=== PATIENT | female | born 1940 | race Caucasian/White ===

== ENCOUNTER → 2017-06-22 | Outpatient (CLI) | payer MEDICARE ==
[~2017-06-22] MED LIST: ACET500T68 PO; ALB0.5 IH; ALBU2.5V36 INH; ALBU8.5H12 IH; AMOX-559 PO; AMOX1TAB3 FT; ASP81 PO; ASPI-715 PO; ATOR10TA2 PO; ATOR20TA22 PO; ATOR20TA65 PO; ATR10 PO; AZIL80TA PO; CALC-1060 PO; CALC600T72 PO; CEPH-13; DICL100G39 TOP; DOC100 PO; DOCU-416 PO; DOXY-179 PO; FER325 PO; HYDR-385 PO; IBAN150T6 PO; IBU200 PO; IBU600 PO; IBUP200C71 PO; IBUP50TA PO; KET10 PO; LEVO-85 PO; LEVO75TA68 PO; LEVO88TA42 PO; LOR5/325 PO; LOSA100T63 PO; MULT-1335 PO; OXYC-854 PO; OXYGENHOME INH; PER PO; PRAM0.5T27 PO; PRED20TA6 PO; ROSU20TA23 PO; SENN-187 PO; WAR75 PO; [UNRECOGNIZED DRUG - CODE] PO; [UNRECOGNIZED DRUG - CODE] PO
[2017-06-22 15:31] LABS: PLATELET COUNT, AUTOMATED 219 K/uL (150-450)
[2017-06-22 15:40] LABS: LDL CHOLESTEROL 60 mg/dl
== END ==
LOC: LAB 15:03
PROVIDERS: ATTEND Family Medicine
DX: I10 Essential (primary) hypertension (principal); E03.9 Hypothyroidism, unspecified; E78.5 Hyperlipidemia, unspecified
CPT/HCPCS: 36415; 82040; 82247; 82310; 82374; 82435; 82465; 82565; 82947; 83718; 84075; 84132; 84155; 84295; 84443; 84450; 84460; 84478; 84520; 85025

== ENCOUNTER → 2017-07-30 | Outpatient (CLI) | payer MEDICARE ==
[~2017-07-30] MED LIST changes: +ALBU8.5H IH; +BENZ200C15 PO; +IPRA3AMP21 IH
--- NOTE | 2017-07-30 12:43 | RADIOLOGY IMAGING REPORT ---
FACILITY: [facility] - [place] PATIENT NAME: Jennifer Kim : 1940 MR: [id number] V: [id number] EXAM DATE: ORDERING PHYSICIAN: GENNA SCHMIDT TECHNOLOGIST: Location: [facility] - [place] Patient: Jennifer Kim : 1940 Visit/Account:[id number] Date of Sevice: 07/30/2017 2 VIEWS CHEST INDICATION: Cough for one week. COMPARISON: 07/18/2014. FINDINGS: Cardiomediastinal silhouette and pulmonary vessels within normal limits for the technique and rotatio n.. There is no focal infiltrate or lobar consolidation. There is no pneumothorax or pleural effusion. No discrete nodule. Upper abdomen is unremarkable. No acute bony abnormality. Continued scoliotic cur vature the spine. No appreciable change given the difference in technique. IMPRESSION: 1. No acute cardiopulmonary process. Report Dictated By: Leandro Espitia at 07/30/2017 12:36 PM Report E-Signed By: Leandro Espitia at 07/30/2017 12:38 PM WSN:[id number]
== END ==
LOC: RAD 11:36
PROVIDERS: ATTEND Nurse Practitioner Primary Care
DX: R05 Cough (principal)
CPT/HCPCS: 71046

== ENCOUNTER → 2018-01-23 | Outpatient (CLI) | payer MEDICARE ==
[~2018-01-23] MED LIST changes: +IBUP-136 PO; -IBUP200C71 PO; +IPRA3AMP10 IH; -IPRA3AMP21 IH
== END ==
LOC: LAB 07:24
PROVIDERS: ATTEND Family Medicine
DX: Z13.1 Encounter for screening for diabetes mellitus (principal)
CPT/HCPCS: 36415; 82947

== ENCOUNTER → 2018-02-13 | Outpatient (CLI) | payer MEDICARE ==
[2018-02-13 16:41] LABS: PLATELET COUNT, AUTOMATED 211 K/uL (150-450)
== END ==
LOC: LAB 16:05
PROVIDERS: ATTEND Family Medicine
DX: E03.9 Hypothyroidism, unspecified (principal); G62.9 Polyneuropathy, unspecified
CPT/HCPCS: 36415; 82040; 82247; 82310; 82374; 82435; 82565; 82607; 82947; 84075; 84132; 84155; 84295; 84443; 84450; 84460; 84520; 85025

== ENCOUNTER 2018-02-22 02:46 | Day surgery (SDC) | payer MEDICARE ==
[~2018-02-22] VITALS: Ht 162.6 cm; Wt 70.3 kg
[2018-02-22 12:56] VITALS: BP 133/60
[2018-02-22] MEDS: OPHTHALMIC PROCEDURE 2 OS PRN ×2 (13:11→13:20)
[2018-02-22] MEDS ORDERED: NORMOSOL R SOLN(*) 1000 ML BAG 1,000 ML IV PRN (13:30)
[2018-02-22] MEDS ORDERED: OPHTHALMIC PROCEDURE 2 OS PRN (13:30)
[2018-02-22] MEDS ORDERED: OPHTHALMIC PROCEDURE 1 OS PRN (13:30)
[2018-02-22] MEDS ORDERED: LIDOCAINE/SOD BICARB 8.4% SYR ID ONE (13:30)
[2018-02-22] MEDS ORDERED: acetaZOLAMIDE 500 MG CAPCR PO ONE (15:00)
[2018-02-22 15:14] VITALS: BP 151/84
--- NOTE | 2018-02-22 18:05 | FOSTER LEFT EYE CATARACT ---
EVENT DATE: February 22, 2018 SURGEON: James Buckner MD ANESTHESIA: Topical PREOPERATIVE DIAGNOSIS Cataract, left eye. POSTOPERATIVE DIAGNOSIS Cataract, left eye. PROCEDURE Phacoemulsification of cataractous lens with implantation of an intraocular lens, left eye. DESCRIPTION OF PROCEDURE The risks, benefits, and alternatives were carefully discussed with the patient, and preoperative consent was obtained. The patient was brought to the operating room after receiving topical anesthetic. The patient was prepped and draped using sterile technique in the usual manner. A stab incision was made, and the chamber was inflated with preservative-free lidocaine. DuoVisc was injected to inflate the chamber. A 2.2 mm blade was used to enter the anterior chamber. Utrata forceps were used to tear a circular capsulorrhexis. BSS was used to hydrodissect the nucleus. Phaco tip was introduced, and the nucleus was chopped into four quadrants. Each quadrant was removed. The I/A tip was used to remove the cortex. The bag was inflated with ProVisc. The intraocular lens was injected into the capsular bag. The I/A tip was used to remove the ProVisc. The wound was found to be watertight. Vigamox, Nevanac, and Maxitrol ointment were placed in the patient's eye. The patient's eye was patched, and the patient was taken to the recovery room in stable condition. The patient was examined in the recovery room and found to be stable prior to release from the hospital. JOSE
[2018-03-04] MEDS ORDERED: HYDR-385 PO (10:14)
[2018-03-07] MEDS ORDERED: PRAM0.5T27 PO (16:21)
== END 2018-02-22 15:30 | disposition home or self-care (01) ==
LOC: OR 02:46
PROVIDERS: ATTEND Ophthalmology
DX: H25.12 Age-related nuclear cataract, left eye (principal)
CPT/HCPCS: 66984; A9270; V2632

== ENCOUNTER 2018-04-19 03:22 | Day surgery (SDC) | payer MEDICARE ==
[~2018-04-19] VITALS: Ht 162.6 cm; Wt 68.5 kg
[~2018-04-19 03:22] MED LIST changes: +FLUT16SP19 NS
[2018-04-19] MEDS ORDERED: acetaZOLAMIDE 500 MG CAPCR PO ONE (12:00)
[2018-04-19] MEDS ORDERED: LIDOCAINE/SOD BICARB 8.4% SYR ID ONE (12:00)
[2018-04-19] MEDS ORDERED: OPHTHALMIC PROCEDURE 2 OD PRN (12:00)
[2018-04-19] MEDS ORDERED: NORMOSOL R SOLN(*) 1000 ML BAG 1,000 ML IV PRN (12:00)
[2018-04-19] MEDS ORDERED: OPHTHALMIC PROCEDURE 1 OD PRN (12:00)
[2018-04-19 12:39] VITALS: BP 135/64
[2018-04-19] MEDS: OPHTHALMIC PROCEDURE 2 OD PRN ×2 (13:06→13:12)
[2018-04-19] MEDS ORDERED: MIDAZOLAM 2 MG/2 ML VIAL ONE (14:16)
[2018-04-19] MEDS ORDERED: PROPOFOL EMUL(*) 10MG/ML 20 ML 20 ML ONE (14:16)
[2018-04-19 14:33] VITALS: BP 136/69
--- NOTE | 2018-04-19 17:57 | FOSTER LEFT EYE CATARACT ---
EVENT DATE: April 19, 2018 SURGEON: James Buckner MD ANESTHESIOLOGIST: Luis Manuel Chung MD ANESTHESIA: MAC PREOPERATIVE DIAGNOSIS Cataract, right eye. POSTOPERATIVE DIAGNOSIS Cataract, right eye. PROCEDURE Phacoemulsification of cataractous lens with implantation of an intraocular lens, right eye. DESCRIPTION OF PROCEDURE The risks, benefits, and alternatives were carefully discussed with the patient, and preoperative consent was obtained. The patient was brought to the operating room after receiving topical anesthetic. The patient was prepped and draped using sterile technique in the usual manner. A stab incision was made, and the chamber was inflated with preservative-free lidocaine. DuoVisc was injected to inflate the chamber. A 2.2 mm blade was used to enter the anterior chamber. Utrata forceps were used to tear a circular capsulorrhexis. BSS was used to hydrodissect the nucleus. Phaco tip was introduced, and the nucleus was chopped into four quadrants. Each quadrant was removed. The I/A tip was used to remove the cortex. The bag was inflated with ProVisc. The intraocular lens was injected into the capsular bag. The I/A tip was used to remove the ProVisc. The wound was found to be watertight. Vigamox, Nevanac, and Maxitrol ointment were placed in the patient's eye. The patient's eye was patched, and the patient was taken to the recovery room in stable condition. The patient was examined in the recovery room and found to be stable prior to release from the hospital. JOSE
[2018-05-01] MEDS ORDERED: HYDR-385 PO (12:20)
== END 2018-04-19 14:50 | disposition home or self-care (01) ==
LOC: OR 03:22
PROVIDERS: ATTEND Ophthalmology
DX: H25.11 Age-related nuclear cataract, right eye (principal)
CPT/HCPCS: 66984; A9270; J2250; J2704; V2632

== ENCOUNTER → 2018-08-21 | Outpatient (CLI) | payer MEDICARE ==
[2018-08-21 12:25] LABS: PLATELET COUNT, AUTOMATED 232 K/uL (150-450)
--- NOTE | 2018-08-21 12:57 | EKG ---
FACILITY: [facility] PATIENT NAME: LEELA HALL : [id number] MR: [id number] V: [id number] EXAM DATE: ORDERING PHYSICIAN: CALEB DIAS TECHNOLOGIST: CLARA Test Reason : PRE OP Blood Pressure : / mmHG Vent. Rate : 061 BPM Atrial Rate : 061 BPM P-R Int : 138 ms QRS Dur : 072 ms QT Int : 428 ms P-R-T Axes : 062 075 065 degrees QTc Int : 430 ms Sinus rhythm Possible left atrial enlargement No acute appearing findings Confirmed by DAILY CAMACHO ([id number]) on 08/21/2018 9:39:29 PM Referred By: ARUN Confirmed By:DAILY CAMACHO
--- NOTE | 2018-08-21 13:32 | RADIOLOGY IMAGING REPORT ---
FACILITY: [facility] - [place] PATIENT NAME: Jennifer Kim : 1940 MR: [id number] V: [id number] EXAM DATE: ORDERING PHYSICIAN: CALEB DIAS TECHNOLOGIST: Location: [facility] - [place] Patient: Jennifer Kim : 1940 Visit/Account:[id number] Date of Sevice: 08/21/2018 CHEST PA LAT HISTORY: History of back pain now for surgery. COMPARISON: Chest x-ray July 30, 2017. FINDINGS: Cardiomediastinal contours: The heart size is normal. Lungs and pleura: There is no finding of a new infiltrate, lymphadenopathy or pleural effusion. Ther e may be mild hyperinflation of the lungs. Previously noted posterior scarring or prominence of the pulmonary markings is unchanged. Bones/soft tissues: There are no findings of a fracture. There is thoracic scoliosis with the convex ity pointing to the left. IMPRESSION: 1. Stable prominence of basilar markings seen best on the lateral projection. No findings of a new infiltrate. 2. Thoracic scoliosis. Report Dictated By: Arslan Campa MD at 08/21/2018 1:24 PM Report E-Signed By: Arslan Campa MD at 08/21/2018 1:25 PM WSN:[id number]
== END ==
LOC: RAD 11:56
PROVIDERS: ATTEND Orthopaedic Surgery
DX: Z01.812 Encounter for preprocedural laboratory examination (principal); Z01.818 Encounter for other preprocedural examination; Z01.810 Encounter for preprocedural cardiovascular examination; J44.9 Chronic obstructive pulmonary disease, unspecified; I10 Essential (primary) hypertension; Z87.891 Personal history of nicotine dependence; M48.061 Spinal stenosis, lumbar region without neurogenic claudication
CPT/HCPCS: 36415; 71046; 82040; 82247; 82310; 82374; 82435; 82565; 82947; 84075; 84132; 84155; 84295; 84443; 84450; 84460; 84520; 85025; 93005

== ENCOUNTER 2018-09-16 02:30 | Inpatient (IN) | payer MEDICARE ==
[2018-09-15 08:44] LABS: PLATELET COUNT, AUTOMATED 212 K/uL (150-450)
[2018-09-16] VITALS (12 sets, daily range): BP systolic 122–146; BP diastolic 50–107
[~2018-09-16] VITALS: Ht 162.6 cm; Wt 68.5 kg
[~2018-09-16 02:30] MED LIST changes: +PREGABALIN 75 MG CAPSULE PO ONE
[2018-09-16] MEDS ORDERED: NORMOSOL R SOLN(*) 1000 ML BAG 1,000 ML IV PRN (06:00)
[2018-09-16] MEDS ORDERED: LIDOCAINE/SOD BICARB 8.4% SYR ID ONE (06:00)
[2018-09-16] MEDS ORDERED: ceFAZolin(*) 2GM/D5W 50ML 50 ML IVPB ONE (06:00)
[2018-09-16] MEDS ORDERED: MIDAZOLAM 2 MG/2 ML VIAL IVP PRN (06:00)
[2018-09-16] MEDS ORDERED: FAMOTIDINE 20 MG TAB PO ONE (06:00)
[2018-09-16] MEDS ORDERED: ACETAMINOPHEN 500 MG TAB PO ONE (07:10)
[2018-09-16] MEDS ORDERED: fentaNYL CITR 100 MCG/2 ML AMP ONE ×3 (07:45→12:23)
[2018-09-16] MEDS ORDERED: ONDANSETRON 4 MG/2 ML VIAL ONE (07:46)
[2018-09-16] MEDS ORDERED: LIDOCAINE MPF 1% 5 ML VIAL ONE (07:46)
[2018-09-16] MEDS ORDERED: ROCURONIUM BROM 10 MG/ML 10 ML ONE (07:46)
[2018-09-16] MEDS ORDERED: KETAMINE HCL-NS 50 MG/5 ML SYR ONE (07:46)
[2018-09-16] MEDS ORDERED: DEXAMETHASONE SOD PHOS 10MG/ML ONE (07:46)
[2018-09-16] MEDS ORDERED: PROPOFOL EMUL(*) 10MG/ML 20 ML 20 ML ONE (07:46)
[2018-09-16] MEDS ORDERED: REMIFENTANIL HCL 1 MG VIAL ONE (07:54)
[2018-09-16] MEDS ORDERED: PREGABALIN 75 MG CAPSULE PO ONE (08:00)
[2018-09-16] MEDS ORDERED: SUGAMMADEX SOD 500 MG/5 ML SDV ONE (08:00)
[2018-09-16] MEDS ORDERED: ROPIVACAINE 0.2% 20 ML VIAL ONE (08:11)
[2018-09-16] MEDS ORDERED: THROMBIN (BOVINE) 20,000 UNIT VIAL ONE ×2 (08:12→09:50)
[2018-09-16] MEDS ORDERED: NS 0.9% IR ONE (08:20)
[2018-09-16] MEDS ORDERED: BACITRACIN IR ONE (08:20)
[2018-09-16] MEDS ORDERED: NS 0.9% IR PRN ×3 (09:15)
[2018-09-16] MEDS ORDERED: BACITRACIN IR PRN ×3 (09:15)
[2018-09-16] MEDS ORDERED: MIDAZOLAM 2 MG/2 ML VIAL ONE (09:30)
[2018-09-16] MEDS ORDERED: ONDANSETRON 4 MG/2 ML VIAL IVP PRN (12:50)
[2018-09-16] MEDS ORDERED: DIAZEPAM 5 MG TAB PO PRN (12:50)
[2018-09-16] MEDS ORDERED: HYDROmorphone HCL 2 MG/ML SDV IVP PRN (12:50)
[2018-09-16] MEDS ORDERED: FLUSH 10 ML SYR IVP PRN (12:50)
[2018-09-16] MEDS ORDERED: BISACODYL 10 MG SUPP PR PRN (12:50)
[2018-09-16] MEDS ORDERED: ACETAMINOPHEN(*)1000 MG/100 ML 100 ML IVPB PRN (12:50)
[2018-09-16] MEDS ORDERED: oxyCODONE HCL 5 MG CAP PO PRN (12:50)
[2018-09-16] MEDS ORDERED: BENZOCAINE/MENTHOL 1 EACH LOZG PO PRN (12:50)
[2018-09-16] MEDS ORDERED: ACETAMINOPHEN 500 MG TAB PO PRN (12:50)
[2018-09-16] MEDS ORDERED: LR(*) 1000 ML BAG 1,000 ML IV PRN (12:50)
[2018-09-16] MEDS ORDERED: diphenhydrAMINE 25 MG CAP PO PRN (12:50)
--- NOTE | 2018-09-16 12:51 | OPERATIVE REPORT 1 ---
EVENT DATE: September 16, 2018 SURGEON: Jun Hernandez MD ANESTHESIOLOGIST: Flavio Jansen MD ANESTHESIA: General endotracheal. HEALTH SPA MANAGER: JES Florian, CANOE INSPECTOR FINAL PREOPERATIVE DIAGNOSIS L3-L4 spinal stenosis with facet cyst and radiculopathy and neurogenic claudication. POSTOPERATIVE DIAGNOSIS L3-L4 spinal stenosis with facet cyst and radiculopathy and neurogenic claudication. PROCEDURE PERFORMED L3-L4 laminectomy and posterior lateral instrumented fusion with pedicle screw construct. IV FLUIDS 2100 cc. ESTIMATED BLOOD LOSS 120 cc. IMPLANTS USED 1. 6.5 mm x 45 mm pedicle screws from [employer] x3. 2. 6.5 mm x 40 mm pedicle screws from [employer] x1. 3. 5.5 mm x 45 mm connecting rods from [employer] x2. 3. Locking caps from [employer] x4. SPECIMENS None. DRAINS None. COMPLICATIONS None. DISPOSITION Post-Anesthesia Care Unit. INDICATIONS Ms. Kim is a 77-year old female who had left greater than right radiating leg pain, numbness and tingling. The majority of the pain was in the upper buttocks radiating down the anterior thighs, again on the left greater than the right. She had significant weakness in both legs with decreased walking tolerance secondary to having tiredness in her legs, preventing her from walking more than one than two blocks at a time. Her physical examination revealed negative straight leg raising tests bilaterally, 5/5 strength in all muscle groups and intact sensation in all dermatomes. Imaging studies showed a dextroconvexed degenerative scoliosis centered on L2 with a rightward lateral listhesis at L3-L4. There is a facet cyst coming from the left L3-L4 facet and severe spinal stenosis at that L3-L4 level without significant stenosis at other levels. Secondary to ongoing symptoms and failure of nonsurgical treatment including rest, activity modification, physical therapy, injections and medications, Ms. Kim was offered and elected to undergo L3-L4 laminectomy with L3-L4 posterior lateral instrumented fusion with a pedicle screw construct. Prior to surgery, I explained in detail to the patient the possible risks of surgery. These risks include bleeding, infection, damage to surrounding structures, nerve root injury, spinal fluid, leak, meningitis, persistent and/or worsening pain, need for further surgery, , blindness, sexual dysfunction, autonomic nervous system dysfunction and other unforeseen medical and surgical complications. An understanding that in general spinal surgery is more predictive at improving extremity discomfort than axial spine pain was stressed. DESCRIPTION OF PROCEDURE On the date of surgery, the patient was met in the preoperative hold area and all questions were answered. The operative site was identified and marked by myself. The patient was brought in good condition to the operating room and after succumbing to anesthesia was positioned in the prone position on a Anton table. All bony protuberances and soft tissues were well padded in the standard fashion. Care was taken to maintain appropriate perfusion pressures during anesthesia. Preoperative antibiotics were administered according to the appropriate timing schedule. At the conclusion of the procedure, sponge and needle counts were correct x2. A final time-out was undertaken by members of the operating team to confirm correct patient, correct levels and correct surgery. A vertical incision was then made overlying the intended surgical levels. Sharp dissection was carried out down to the posterior elements and soft tissues were elevated off the posterior elements in a subperiosteal manner. A lateral radiograph was obtained to confirm appropriate spinal level. Soft tissues were dissected off the posterior elements to prepare for pedicle screw insertion. We elevated soft tissues from the lamina, the pars intra-articularis and then out to the tips of the transverse processes of L3 and L4 bilaterally. We then packed thrombin soaked sponges into the lateral gutters for hemostasis and to maintain space for later placement of screws. The spinous process of L3 was removed using a combination of Leksell rongeurs and a [employer] bone cutter. The lamina was thinned down the midline with Leksell rongeurs and a high-speed bur. I was able to then use a Bunch curette to undermine the superior insertion of the ligamentum flavum from the inferior aspect of the L3 lamina. A Camp elevator was used to separate dural adhesions from surrounding bone and soft tissue prior to use of the Kerrison punch. A midline decompression was then performed with a combination of #3 and #4 Kerrison rongeurs. Once the midline decompression was complete superiorly, we encountered a significant amount of thickened ligamentum flavum as well as scar tissue in the facet joint cyst on the left side. We had to carefully tease the dura away from the ligamentum flavum and the facet cyst and ultimately were able to perform bilateral lateral recess decompressions, again using #3 and #4 Kerrisons. At the conclusion of the bilateral lateral recess decompressions, the Camp elevator was passed down the lateral recesses to ensure no ongoing compression of the dura or the neural elements. The Camp was similarly passed around the pedicles and out the foramina of the L3 and the L4 nerve root and excellent decompression had been achieved. Attention was then turned to the fusion portion of the procedure. The starting points for pedicle screws were identified bilaterally at L3 and L4. This was at approximately the intersection of the pars intra-articularis, the mid point of the transverse process and the lateral aspect of the adjacent facet joint. The 5 mm bur was used to decorticate the entry point and then a Lenke style probe was advanced against resistance through the pedicles and into the vertebral bodies. A ball tip feeler was used to palpate the pedicle superiorly, inferiorly, medially, laterally and distally to confirm absence of bony breaching. Pedicle screws were then placed bilaterally at L3 and L4 using 45 mm pedicle screws bilaterally for L3, a 45 mm pedicle screw on the right at L4 and a 40 mm pedicle screw on the left at L4. These screws were tested with neurophysiologic monitoring and all tested well within acceptable limits. 45 mm connecting rods were then selected and placed with the tulips of the pedicle screws bilaterally. Locking caps were placed and tightened and then finally tightened with the torque-limiting breakoff device. We then irrigated the wound with copious sterile saline solution and then used the 5 mm bur to decorticate the transverse processes of L3 and L4 bilaterally. Harvested and milled local bone was then packed into the lateral gutters overlying the transverse processes of L3 and L4. Hemostasis was obtained and the wound was then closed using running Stratafix suture for the deep fascia, inverted interrupted sutures for the subcutaneous tissue and then a running subcuticular skin stitch. Sponge and needle counts were correct x2. POSTOPERATIVE CARE PLAN The patient will remain in the hospital until she meets discharge criteria. She will be discharged home with instructions to follow up in two weeks for wound check and examination. JOSE
--- NOTE | 2018-09-16 13:47 | RADIOLOGY IMAGING REPORT ---
FACILITY: [facility] PATIENT NAME: Jennifer Kim : 1940 MR: [id number] V: [id number] EXAM DATE: ORDERING PHYSICIAN: CALEB DIAS TECHNOLOGIST: Location: [facility] Patient: Jennifer Kim : 1940 Visit/Account:[id number] Date of Sevice: 09/16/2018 L-SPINE >4 VIEWS Indication: L3-4 LAMI, L3-4 FUSION WITH INSTRUMENTATION Comparison: None. Findings: Intraoperative images of lumbar surgery available. Images demonstrate instrumentation at t he lower lumbar spine, at L3-4. IMPRESSION: Intraoperative images from lumbar surgery at L3-4. Report Dictated By: Gayr Hayes at 09/16/2018 1:34 PM Report E-Signed By: Gary Hayes at 09/16/2018 1:41 PM WSN:[email or web address]
--- NOTE | 2018-09-16 13:53 | Hospitalist Consultation ---
History of Present Illness Requesting Physician Dr. Hernandez Reason for Consult Medical Management Chief Complaint s/p lumbar fusion History of Present Illness She was admitted s/p lumbar fusion. It is reported the surgery went well and without complication. History Problems: (1) Hyperlipidemia Status: Chronic (2) Hypothyroidism Status: Chronic (3) RLS (restless legs syndrome) Status: Chronic (4) HTN (hypertension) Status: Chronic Home Meds Active Scripts Hydrocodone Bit/Acetaminophen (HYDROCODON-ACETAMINOPHEN 5-325) 1 Each Tablet, 1- 2 EACH PO QDAY for 30 Days, #60 TAB Prov:WINNIE LAIRD MD 08/21/18 Pramipexole Di-Hcl (MIRAPEX) 0.5 Mg Tablet, 1 TAB PO QDAY for 90 Days, #90 TAB 4 Refills Prov:WINNIE LAIRD MD 03/07/18 Losartan Potassium (COZAAR) 100 Mg Tablet, 1 TAB PO daily for 90 Days, #90 TAB 4 Refills Prov:WINNIE LAIRD MD 01/17/18 Atorvastatin Calcium (ATORVASTATIN CALCIUM) 20 Mg Tablet, 1 TAB PO QDAY for 90 Days, #90 TAB 4 Refills Prov:WINNIE LAIRD MD 12/13/17 Reported Medications Acetaminophen (TYLENOL EXTRA STRENGTH) 500 Mg Tablet, 2 TAB PO BID PRN for PAIN 06/22/17 Oxygen (OXYGEN) Inha, 2 L INH, L 01/13/17 Sennosides/Docusate Sodium (Stool Softener Tablet) 1 Each Tablet, 2 CAP PO HS 05/31/12 Calc/D3/Mag/Zn/Printer Slotter Feeder/Jose M/Dudley (CALCIUM 600 MG + VIT D TAB) 1 Each Tablet, 1 TAB PO BID 05/31/12 Aspirin (Aspirin) 81 Mg Tablet., 1 TAB PO DAILY 05/31/12 Levothyroxine Sodium (Levothyroxine Sodium) 88 Mcg Tablet, 1 TAB PO DAILY 05/31/12 Multivitamins W-Minerals (Multiple Vitamin) 1 Tab Tablet, 1 TAB PO DAILY 01/18/11 Allergies: Coded Allergies: YAMILEX Inhibitors (Verified Allergy, Mild, COUGH, 04/08/18) codeine (Verified Adverse Reaction, Severe, NAUSEA/VOMITING, 04/08/18) benazepril (Verified Adverse Reaction, Unknown, COUGH, 04/08/18) Patient History: Bundle branch block BROTHER OR SISTER FH: diabetes mellitus MOTHER, , Age:73 Hx Smoking: No (1 PPDX 40 YEARS ) Smoking Status: Former Smoker Exposure to Second Hand Smoke?: No Caffeine Intake: Coffee Caffeine/Cups Per Day: 1-2 CUPS/DAY Hx Alcohol Use: No Hx Substance Use Disorder: No Social Drug Use: Never Review of Systems All Systems Reviewed/Normal: Yes, Except as Noted Exam Vital Signs Vital Signs Date Time Temp Pulse Resp B/P (MAP) Pulse Ox O2 Delivery O2 Flow Rate FiO2 09/16/18 13:36 86 09/16/18 13:30 67 144/107 (119) Nasal Cannula 2.0 09/16/18 13:02 18 09/16/18 13:02 98.5 General Appearance: Alert, Awake, No Acute Distress, Afebrile Neuro: No Gross deficits Cardiovascular: Regular Rate and Rhythm Respiratory: No Respiratory Distress, Clear to Auscultation Psych: Alert & Oriented X3, Appropriate Mood & Affect Medical Decision Making Data Points Result Diagram: 09/15/1839 09/15/1839 Assessment and Plan Problems: (1) S/P lumbar fusion Status: Acute Assessment & Plan: Followed by Dr. Hernandez. (2) HTN (hypertension) Status: Chronic Assessment & Plan: She is on chronic treatment with Losartan. This has been restarted with hold parameters. (3) Hypothyroidism Status: Chronic Assessment & Plan: She is on chronic treatment with Levothyroxine. Continue. (4) Hyperlipidemia Status: Chronic Assessment & Plan: She is on chronic treatment with Atorvastatin. Continue. (5) RLS (restless legs syndrome) Status: Chronic Assessment & Plan: She is on chronic treatment with Mirapex. Continue. Venous Thromboembolism Antithrombotics Is Pt On Any Antithrombotics?: No Prophylaxis Tx Contraindicated Pharmacological Contraindicati: Surgical Contraindication Exam Sepsis Risk: No Definite Risk Problem Qualifiers (1) HTN (hypertension): Hypertension type: essential hypertension Qualified Codes: I10 - Essential (primary) hypertension KEIRA KIM LEARNING DISABILITIES TEACHER Sep 16, 2018 13:53
--- NOTE | 2018-09-16 14:19 | RADIOLOGY IMAGING REPORT ---
FACILITY: [facility] PATIENT NAME: Jennifer Kim : 1940 MR: [id number] V: [id number] EXAM DATE: ORDERING PHYSICIAN: CALEB DIAS TECHNOLOGIST: Location: [facility] - [place] Patient: Jennifer Kim : 1940 Visit/Account:[id number] Date of Sevice: 09/16/2018 C-ARM FLUORO 1 HR Indication: L3-L4 DISC HERNIATION/FUSION Comparison: None. Findings: Intraoperative images are obtained of the lower lumbar spine surgery with posterior mentati on and hardware identified. IMPRESSION: Lumbar spine surgery. Radiation dose: DAP 0.4798 mGycm2; AK 2.4386 mGy Report Dictated By: Gary Hayes at 09/16/2018 2:14 PM Report E-Signed By: Gary Hayes at 09/16/2018 2:15 PM WSN:[email or web address]
[2018-09-16] MEDS: APAP/HYDROCODONE 325/5 TAB PO PRN ×2 (15:26→19:37)
[2018-09-16] MEDS: ceFAZolin(*) 2GM/D5W 50ML 50 ML IVPB SCH (17:15)
[2018-09-16] MEDS: NS(*) 0.9% 250 ML BAG 250 ML IV SCH (17:15)
[2018-09-16] MEDS: PRAMIPEXOLE DIHYDROCHL 0.25 MG PO SCH (21:19)
[2018-09-16] MEDS: DOCUSATE SODIUM 100 MG CAP PO SCH (21:19)
[2018-09-17] VITALS (7 sets, daily range): BP systolic 120–147; BP diastolic 53–99
[2018-09-17] MEDS: NS(*) 0.9% 250 ML BAG 250 ML IV SCH (00:12)
[2018-09-17] MEDS: APAP/HYDROCODONE 325/5 TAB PO PRN ×5 (00:32→20:15)
[2018-09-17] MEDS: ceFAZolin(*) 2GM/D5W 50ML 50 ML IVPB SCH ×2 (00:32→09:04)
[2018-09-17] MEDS ORDERED: LEVOTHYROXINE SOD 0.088 MG TAB PO SCH (06:00)
[2018-09-17] MEDS: LEVOTHYROXINE SOD 0.088 MG TAB PO SCH (06:09)
[2018-09-17] MEDS ORDERED: HYDROmorphone* 1 MG/ML 1 MG/ML ML IVP PRN (07:40)
[2018-09-17] MEDS: LOSARTAN POTASSIUM 50 MG TAB PO SCH (09:00)
[2018-09-17] MEDS: MAGNESIUM HYDROXIDE* 30ML UDCP PO PRN ×2 (09:01→20:15)
[2018-09-17] MEDS: ATORVASTATIN 10 MG TAB PO SCH (09:03)
[2018-09-17] MEDS: DOCUSATE SODIUM 100 MG CAP PO SCH ×2 (09:03→20:15)
--- NOTE | 2018-09-17 09:21 | RADIOLOGY IMAGING REPORT ---
FACILITY: [facility] [place] PATIENT NAME: Jennifer Kim : 1940 MR: [id number] V: [id number] EXAM DATE: ORDERING PHYSICIAN: CALEB DIAS TECHNOLOGIST: Location: [facility] Patient: Jennifer Kim : 1940 Visit/Account:[id number] Date of Sevice: 09/17/2018 Technique: L-SPINE 2 OR 3 VIEW HISTORY: S/P L3-4 lami/fusion Comparison studies: Lumbar spine radiographs September 16, 2018 FINDINGS: Posterior spinal fusion hardware is noted at L3-L4. There is intervertebral disc space marilyn rowing at L5-S1 with corresponding endplate osteophytosis and sclerosis at this respective level. Th e vertebral body heights are preserved. There is a dextroscoliotic curvature of the lumbar spine. IMPRESSION: 1. Posterior spinal fusion hardware at L3-L4 without evidence of hardware complication. 2. Degenerative findings as above. Report Dictated By: Abhilash Meza DO at 09/17/2018 9:10 AM Report E-Signed By: Abhilash Meza DO at 09/17/2018 9:16 AM WSN:[id number]
--- NOTE | 2018-09-17 10:42 | Hospitalist Progress Note ---
Subjective Progress Notes Subjective She was admitted s/p lumbar fusion. She is doing well post-operatively. She had no acute events overnight. Patient Complains of: Cardiovascular: No: Chest Pain Respiratory: No: Shortness of Breath Physical Exam Vital Signs Date Time Temp Pulse Resp B/P (MAP) Pulse Ox O2 Delivery O2 Flow Rate FiO2 09/17/18 07:19 98.0 64 16 121/58 (79) 96 Nasal Cannula 09/17/18 04:32 3.0 Intake and Output 09/17/18 07:00 Intake Total 3000 ml Balance 3000 ml Intake Oral 1200 ml IV Total 1800 ml # Voids 4 General Appearance: Alert, Awake, No Acute Distress, Afebrile Neuro: No Gross deficits Cardiovascular: Regular Rate and Rhythm Respiratory: No Respiratory Distress, Clear to Auscultation GI: Soft and Non-Tender Psych: Alert & Oriented X3, Appropriate Mood & Affect Result Diagram: 09/15/18 0839 09/15/18 0839 Assessment and Plan Problems: (1) S/P lumbar fusion Status: Acute Assessment & Plan: Followed by Dr. Hernandez. (2) HTN (hypertension) Status: Chronic Assessment & Plan: She is on chronic treatment with Losartan. This was restarted with hold parameters. (3) Hypothyroidism Status: Chronic Assessment & Plan: She is on chronic treatment with Levothyroxine. Continue. (4) Hyperlipidemia Status: Chronic Assessment & Plan: She is on chronic treatment with Atorvastatin. Continue. (5) RLS (restless legs syndrome) Status: Chronic Assessment & Plan: She is on chronic treatment with Mirapex. Continue. Exam Sepsis Risk: No Definite Risk Problem Qualifiers (1) HTN (hypertension): Hypertension type: essential hypertension Qualified Codes: I10 - Essential (primary) hypertension KEIRA KIM CARE TEAM ASSISTANT Sep 17, 2018 10:42
[2018-09-17] MEDS: PRAMIPEXOLE DIHYDROCHL 0.25 MG PO SCH (20:14)
[2018-09-18 04:31] VITALS: BP 134/63
[2018-09-18] MEDS: LEVOTHYROXINE SOD 0.088 MG TAB PO SCH (04:37)
[2018-09-18] MEDS: APAP/HYDROCODONE 325/5 TAB PO PRN ×2 (04:38→09:12)
[2018-09-18] MEDS ORDERED: DOCU240C84 PO (06:52)
[2018-09-18] MEDS ORDERED: DIA5 PO (06:53)
[2018-09-18] MEDS ORDERED: LOR5/325 PO (06:53)
[2018-09-18 07:31] VITALS: BP 130/64
--- NOTE | 2018-09-18 08:35 | Hospitalist Progress Note ---
Subjective Progress Notes Subjective She was admitted after lumbar fusion. She is doing well post-operatively. She has no complaints. She would like to go home today. Patient Complains of: Cardiovascular: No: Chest Pain Respiratory: No: Shortness of Breath Physical Exam Vital Signs Date Time Temp Pulse Resp B/P (MAP) Pulse Ox O2 Delivery O2 Flow Rate FiO2 09/18/18 07:52 84 09/18/18 07:31 98.2 75 20 130/64 (86) Nasal Cannula 09/18/18 04:31 3.5 Intake and Output 09/18/18 07:00 Intake Total 1550 ml Balance 1550 ml Intake Oral 1550 ml # Voids 5 General Appearance: Alert, Awake, No Acute Distress, Afebrile Neuro: No Gross deficits Cardiovascular: Regular Rate and Rhythm Respiratory: No Respiratory Distress, Clear to Auscultation GI: Soft and Non-Tender Psych: Alert & Oriented X3, Appropriate Mood & Affect Result Diagram: 09/15/18 0839 09/15/18 0839 Assessment and Plan Problems: (1) S/P lumbar fusion Status: Acute Assessment & Plan: Followed by Dr. Hernandez. (2) HTN (hypertension) Status: Chronic Assessment & Plan: She is on chronic treatment with Losartan. This was restarted with hold parameters. (3) Hypothyroidism Status: Chronic Assessment & Plan: She is on chronic treatment with Levothyroxine. Continue. (4) Hyperlipidemia Status: Chronic Assessment & Plan: She is on chronic treatment with Atorvastatin. Continue. (5) RLS (restless legs syndrome) Status: Chronic Assessment & Plan: She is on chronic treatment with Mirapex. Continue. Exam Sepsis Risk: No Definite Risk Problem Qualifiers (1) HTN (hypertension): Hypertension type: essential hypertension Qualified Codes: I10 - Essential (primary) hypertension KEIRA KIM STRETCHER OPERATOR Sep 18, 2018 08:35
[2018-09-18] MEDS: LOSARTAN POTASSIUM 50 MG TAB PO SCH (09:00)
[2018-09-18] MEDS: ATORVASTATIN 10 MG TAB PO SCH (09:11)
[2018-09-18] MEDS: DOCUSATE SODIUM 100 MG CAP PO SCH (09:12)
== END 2018-09-18 10:40 | disposition home or self-care (01) | DRG 460 ==
LOC: OR 02:30 → MED 13:02
PROVIDERS: ADMIT Orthopaedic Surgery; ATTEND Orthopaedic Surgery
PROC: 01NB0ZZ Release Lumbar Nerve, Open Approach (ICD-10-PCS; 2018-09-16)
PROC: 0SG0071 Fusion of Lumbar Vertebral Joint with Autologous Tissue Substitute, Posterior Approach, Posterior Column, Open Approach (ICD-10-PCS; principal; 2018-09-16 09:00)
DX: M48.062 Spinal stenosis, lumbar region with neurogenic claudication (principal); G96.19 Other disorders of meninges, not elsewhere classified; M54.16 Radiculopathy, lumbar region; I10 Essential (primary) hypertension; G47.33 Obstructive sleep apnea (adult) (pediatric); J44.9 Chronic obstructive pulmonary disease, unspecified; E03.9 Hypothyroidism, unspecified; E78.5 Hyperlipidemia, unspecified; G25.81 Restless legs syndrome; Z88.5 Allergy status to narcotic agent; Z88.8 Allergy status to other drugs, medicaments and biological substances; Z90.710 Acquired absence of both cervix and uterus
CPT/HCPCS: 36415; 72020; 72100; 76000; 82040; 82247; 82310; 82374; 82435; 82565; 82947; 84075; 84132; 84155; 84295; 84443; 84450; 84460; 84520; 85025; 95940; 97161; C1713; J0690; J1100; J1170; J2001; J2250; J2405; J2704; J2795; J3010; J3490; J7050